=== PATIENT | male | born 1955 | race Caucasian/White ===

== ENCOUNTER 2016-09-22 19:59 | Inpatient (IN) | payer MEDICARE ==
[2016-09-22] MEDS ORDERED: ASPIRIN 81 MG CHEW PO STA (20:07)
[2016-09-22] MEDS ORDERED: MORPHINE SULFATE 4 MG/ML SYRINGE IV PRN (20:07)
[2016-09-22] MEDS ORDERED: NITROGLYCERIN SL TABS 0.4 MG TAB SUBLINGUAL PRN (20:07)
--- NOTE | 2016-09-22 20:11 | ED ---
General Adult HPI - General Chief complaint: Chest Pain Stated complaint: cardiac Time Seen by Provider: 09/22/16 20:07 Source: patient, RN notes reviewed, old records reviewed Mode of arrival: EMS Limitations: no limitations - History of Present Illness Initial comments: This is a 60-year-old male here for evaluation. This patient presents for evaluation of transfer regarding elevated troponin, non-ST elevated PA. Patient denies chest pain but has had increasing shortness of breath about 9 days. Exertional shortness of breath increased cough and congestion. Patient denies history of similar events in the past. Patient currently denies chest pain at this time patient denies history of heart disease. No fevers that is noted. No travel history or sick contacts - Related Data Home Medications Medication Instructions Recorded Confirmed No Known Home Medications [No 09/22/16 09/22/16 Known Home Medications] Allergies Allergy/AdvReac Type Severity Reaction Status Date / Time No Known Allergies Allergy Verified 09/22/16 20:08 Review of Systems ROS Statement: Those systems with pertinent positive or pertinent negative responses have been documented in the HPI. ROS Other: All systems not noted in ROS Statement are negative. Past Medical History Past Medical History: No Reported History History of Any Multi-Drug Resistant Organisms: None Reported Past Surgical History: Orthopedic Surgery Additional Past Surgical History / Comment(s): eye, wrist Past Psychological History: No Psychological Hx Reported Smoking Status: Former smoker Past Alcohol Use History: None Reported Past Drug Use History: Marijuana General Exam Limitations: no limitations General appearance: alert, in no apparent distress Head exam: Present: atraumatic, normocephalic, normal inspection Eye exam: Present: normal appearance, PERRL, EOMI. Absent: scleral icterus, conjunctival injection, periorbital swelling ENT exam: Present: normal exam, mucous membranes moist Neck exam: Present: normal inspection. Absent: tenderness, meningismus, lymphadenopathy Respiratory exam: Present: normal lung sounds bilaterally. Absent: respiratory distress, wheezes, rales, rhonchi, stridor Cardiovascular Exam: Present: regular rate, normal rhythm, normal heart sounds. Absent: systolic murmur, diastolic murmur, rubs, gallop, clicks GI/Abdominal exam: Present: soft, normal bowel sounds. Absent: distended, tenderness, guarding, rebound, rigid Extremities exam: Present: normal inspection, full ROM, normal capillary refill. Absent: tenderness, pedal edema, joint swelling, calf tenderness Back exam: Present: normal inspection Neurological exam: Present: alert, oriented X3, CN II-XII intact Psychiatric exam: Present: normal affect, normal mood Skin exam: Present: warm, dry, intact, normal color. Absent: rash Course Vital Signs 09/22/16 20:01 Pulse Rate 64 Respiratory 18 Rate Blood Pressure 125/85 O2 Sat by Pulse 96 Oximetry - Reevaluation(s) Reevaluation #1: 09/22/16 20:10 Patient is in no acute distress here in the emergency room, resting comfortably Reevaluation #2: 09/22/16 20:10 Spoke with transferring physician regarding transfer of patient Reevaluation #3: 09/22/16 20:10 Patient's medical transfer. Paperwork Work is reviewed 09/22/16 20:11 Medical Decision Making - Medical Decision Making Male the ER for evaluation of cough congestion shortness of breath for about 9 or so days. Patient was found to have elevated troponin 0.2 at outside facility , patient transferred for cardiac observation and evaluation. Patient will be admitted for anticoagulation, tripped serial troponins telemetry and cardiac observation Critical Care Time Critical Care Time: Yes Total Critical Care Time: 31 Disposition Clinical Impression: Chest pain, NSTEMI (non-ST elevated myocardial infarction) Disposition: ADMITTED IP TO THIS [facility] Condition: Serious Referrals: None,Stated [Primary Care Provider] - 1-2 days
[2016-09-22] MEDS: SODIUM CHLORIDE 0.9% 1,000 ML IV SCH (20:22)
[2016-09-22] MEDS: HEPARIN SODIUM,PORCINE/D5W PMX 25,000 UNIT in DEXTROSE/WATER 1 500ML.BAG IV SCH (20:23)
[2016-09-22] MEDS ORDERED: methylPREDNISolone SOD SUCCI 125 MG/2 ML VIAL IV STA (21:48)
[2016-09-22] MEDS: IPRATROPIUM-ALBUTEROL 3 ML NEB INHALATION SCH (23:17)
[2016-09-22 23:21] LABS: Creatine Kinase 116 U/L (55-170)
[2016-09-22] MEDS ORDERED: HEPARIN SODIUM,PORCINE 5,000 UNIT/ML 1 ML VIAL IV PRN (23:30)
[2016-09-22 23:35] LABS: Creatine Kinase MB 0.7 ng/mL (0.0-2.4); Troponin I <0.012 ng/mL (0.000-0.034)
[2016-09-23 01:04] VITALS: BMI 23.1
[2016-09-23 02:22] LABS: Creatine Kinase 106 U/L (55-170)
[2016-09-23 02:35] LABS: Creatine Kinase MB 0.7 ng/mL (0.0-2.4); Troponin I <0.012 ng/mL (0.000-0.034)
[2016-09-23] MEDS: IPRATROPIUM-ALBUTEROL 3 ML NEB INHALATION SCH ×6 (04:36→23:34)
[2016-09-23 05:55] LABS: Basophils % (A) 0 %; CH 32.2; CHCM 34.8; Eosinophils % (A) 0 %; HCT 36.3 % (39.0-53.0); HDW 2.62; HGB 12.5 gm/dL (13.0-17.5); Luc # (Auto) 0.05; Luc % (Auto) 1; Lymphocytes # (A) 0.5 k/uL (1.0-4.8); Lymphocytes % (A) 12 %; MCH 31.8 pg (25.0-35.0); MCHC 34.3 g/dL (31.0-37.0); MCV 92.8 fL (80.0-100.0); Mean Platelet Volume 7.7; Monocytes # (A) 0.1 k/uL (0-1.0); Monocytes % (A) 2 %; Neutrophils # (A) 3.4 k/uL (1.3-7.7); Neutrophils % (A) 84 %; RBC 3.91 m/uL (4.30-5.90); RDW 12.9 % (11.5-15.5); WBC (Perox) 4.07
[2016-09-23 06:09] LABS: ALT 26 U/L (21-72); AST 17 U/L (17-59); Alkaline Phosphatase 81 U/L (38-126); Anion Gap 11 mmol/L; Blood Urea Nitrogen 13 mg/dL (9-20); Calcium 8.9 mg/dL (8.4-10.2); Carbon Dioxide 21 mmol/L (22-30); Chloride 106 mmol/L (98-107); Cholesterol 164 mg/dL (<200); Glucose 206 mg/dL (74-99); HDL Cholesterol 38 mg/dL (40-60); Non-African American GFR(MDRD) >60 (>60 ml/min/1.73 sqM); Potassium 3.3 mmol/L (3.5-5.1); Sodium 138 mmol/L (137-145); Total Bilirubin 0.8 mg/dL (0.2-1.3); Total Protein 7.1 g/dL (6.3-8.2); Triglycerides 49 mg/dL (<150)
[2016-09-23] MEDS: methylPREDNISolone SOD SUCCI 125 MG/2 ML VIAL IV SCH ×3 (07:45→21:14)
[2016-09-23] MEDS ORDERED: IPRATROPIUM-ALBUTEROL 3 ML NEB INHALATION SCH (08:00)
[2016-09-23] MEDS: ASPIRIN 325 MG TAB PO SCH (09:10)
[2016-09-23] MEDS: ATORVASTATIN 80 MG TAB PO SCH (09:10)
[2016-09-23] MEDS: SODIUM CHLORIDE 0.9% 1,000 ML IV SCH ×2 (09:11→11:40)
[2016-09-23] MEDS ORDERED: Potassium Replacement Protocol 1 EACH MISC MISCELLANE PRN (10:03)
--- NOTE | 2016-09-23 11:24 | P.CRDCN ---
History of Present Illness Consult date: 09/23/16 Chief complaint: Chest pain and positive troponin History of present illness: This is a 60-year-old gentleman with history of COPD who hasn't seen a physician in a long time has been having cough , congestion and shortness of breath for several days. Patient was also having body aches. He claims that over the last several days has been having some burning pain in the epigastric and lower sternal area which increases on deep breathing and mostly with coughing. No tenderness but he can reproduce the discomfort by squeezing the chest. Patient was seen in [facility], [place]. His cardiac enzymes showed positive troponin values. Because of chest pain and positive troponins patient was transferred here for suspected non-ST elevation [place]. His EKGs did not reveal any acute changes and cardiac enzymes 2 done in this hospital showed normal values. Patient is still wheezing and his symptoms mostly appear to be respiratory. Patient claims that several years ago he was admitted to one of the [facility] with a syncopal episode. At that time patient was bradycardic. However after all the evaluation he was told that he had a normal heart and the time. Denied any previous chest pains heart attacks or anginal episodes. We'll proceed with an echocardiogram to assess LV function. Will have pulmonary evaluation for treatment of his respiratory status and COPD exacerbation. When patient is stable he may be considered for a stress test Review of Systems REVIEW OF SYSTEMS: CONSTITUTIONAL:. Patient is doing well. No complaints of fever or chills EYES: Denies diplopia, blurring of vision EARS, NOSE, MOUTH, THROAT: Denies headaches, denies sore throat. CARDIOVASCULAR: As per HPI RESPIRATORY: As per HPI GASTROINTESTINAL: Denies change in appetite, denies abdominal pain, denies diarrhea GENITOURINARY: Denies hematuria, denies infections. MUSKULOSKELETAL: Denies pain, denies swelling. Denies any cramps or claudication INTEGUMENTARY: Denies rash, denies eczema. NEUROLOGICAL: Denies focal weakness, or visual disturbance. Denies any dizziness or syncope PSYCHIATRIC: Denies anxiety, denies depression. HEMATOLOGIC/LYMPHATIC: Denies any bleeding, denies enlarged lymph nodes. Past Medical History Past Medical History: No Reported History History of Any Multi-Drug Resistant Organisms: None Reported Past Surgical History: Orthopedic Surgery Additional Past Surgical History / Comment(s): eye, wrist Past Psychological History: No Psychological Hx Reported Smoking Status: Former smoker Past Alcohol Use History: None Reported Past Drug Use History: Marijuana Medications and Allergies Home Medications Medication Instructions Recorded Confirmed Type No Known Home Medications [No 09/22/16 09/22/16 History Known Home Medications] Allergies Allergy/AdvReac Type Severity Reaction Status Date / Time No Known Allergies Allergy Verified 09/22/16 21:27 Physical Exam Vitals: Vital Signs Temp Pulse Pulse Resp BP BP Pulse Ox 09/23/16 08:45 97.6 F 79 18 111/61 96 09/23/16 07:22 60 09/23/16 07:10 60 09/23/16 04:45 60 09/23/16 04:36 64 09/23/16 02:46 97.1 F L 60 18 118/67 97 09/23/16 00:56 97.1 F L 60 18 121/61 96 09/22/16 23:27 60 09/22/16 23:19 56 L 96 09/22/16 23:06 57 L 20 121/62 98 09/22/16 21:39 57 L 20 140/84 100 Intake and Output 09/22/16 09/23/16 09/23/16 22:59 06:59 14:59 Intake Total 431.668 237 Balance 431.668 237 Intake: IV 368 Heparin Sodium,Porcine/ 68 D5w Pmx 25,000 unit In Dextrose/Water 1 500ml. bag @ 12 UNITS/KG/HR 19. 59 mls/hr IV .Q24H D[facility]I Rx #:[id number] Sodium Chloride 0.9% 1, 300 000 ml @ 100 mls/hr IV . Q10H D[facility]I Rx#:[id number] Intake, IV Titration 63.668 Amount Heparin Sodium,Porcine/ 63.668 D5w Pmx 25,000 unit In Dextrose/Water 1 500ml. bag @ 12 UNITS/KG/HR 19. 59 mls/hr IV .Q24H D[facility]I Rx #:[id number] Oral 237 Other: # Voids 1 Weight 81.647 kg GENERAL EXAM: Patient is alert and oriented and doesn't appear to be in any acute distress HEENT: Normocephalic. Normal reaction of pupils, equal size, normal range of extraocular motion. No erythema or exudates in the throat. NECK: No masses, no nuchal rigidity. CHEST: No chest wall deformity. LUNGS: Expiratory wheezing and rhonchi HEART: S1 and S2 normal with no audible mumurs or gallops. Regular rhythm, femorals equal on both sides.. ABDOMEN: No hepatosplenomegaly, normal bowel sounds, no guarding or rigidity. SKIN: No rashes CENTRAL NERVOUS SYSTEM: No focal deficits. EXTREMITIES: No cyanosis, clubbing or edema. Results 09/23/16 05:38 09/23/16 05:38 Cardiac Enzymes 09/22/16 09/23/16 09/23/16 Range/Units 22:52 01:45 05:38 AST 17 (17-59) U/L CK-MB (CK-2) 0.7 0.7 (0.0-2.4) ng/mL Troponin I <0.012 <0.012 (0.000-0.034) ng/mL Coagulation 09/22/16 Range/Units 22:52 APTT 40.8 H (22.0-30.0) sec Lipids 09/23/16 Range/Units 05:38 Triglycerides 49 (<150) mg/dL Cholesterol 164 (<200) mg/dL HDL Cholesterol 38 L (40-60) mg/dL CBC 09/23/16 Range/Units 05:38 WBC 4.0 (3.8-10.6) k/uL RBC 3.91 L (4.30-5.90) m/uL Hgb 12.5 L (13.0-17.5) gm/dL Hct 36.3 L (39.0-53.0) % Plt Count 186 (150-450) k/uL Comprehensive Metabolic Panel 09/23/16 Range/Units 05:38 Sodium 138 (137-145) mmol/L Potassium 3.3 L (3.5-5.1) mmol/L Chloride 106 (98-107) mmol/L Carbon Dioxide 21 L (22-30) mmol/L BUN 13 (9-20) mg/dL Creatinine 0.60 L (0.66-1.25) mg/dL Glucose 206 H (74-99) mg/dL Calcium 8.9 (8.4-10.2) mg/dL AST 17 (17-59) U/L ALT 26 (21-72) U/L Alkaline Phosphatase 81 (38-126) U/L Total Protein 7.1 (6.3-8.2) g/dL Albumin 3.9 (3.5-5.0) g/dL Current Medications Generic Name Dose Route Start Last Admin Trade Name Hectorq PRN Reason Stop Dose Admin Albuterol/Ipratropium 3 ml 09/23/16 00:00 09/23/16 07:10 Duoneb 0.5 Mg-3 Mg/3 Ml Soln INHALATION 3 ml RT-Q4H DIONI Administration Aspirin 325 mg 09/23/16 09:00 09/23/16 09:10 Aspirin PO 325 mg DAILY DIONI Administration Atorvastatin Calcium 80 mg 09/23/16 09:00 09/23/16 09:10 Lipitor PO Not Given DAILY DIONI Heparin Sodium (Porcine) 0 unit 09/22/16 23:30 09/22/16 23:37 Heparin IV 2,040 unit PER PROTOCOL PRN Administration Low PTT Protocol Heparin Sodium/Dextrose 25,000 500 mls @ 19.59 mls/hr 09/22/16 20:15 23:38 unit/ IV Solution IV 14 units/kg/hr .Q24H DIONI 22.86 mls/hr Protocol Titration 12 UNITS/KG/HR Sodium Chloride 1,000 mls @ 100 mls/hr 09/22/16 20:15 09/23/16 09:11 Saline 0.9% IV 100 mls/hr .Q10H DIONI Administration Insulin Human Lispro 0 unit 09/23/16 12:30 Humalog SQ ACHS DIONI Protocol Methylprednisolone Sodium Succinate 60 mg 09/23/16 06:00 09/23/16 07:45 Solu-Medrol IV 60 mg Q8H DIONI Administration Miscellaneous Information 1 each 09/23/16 10:03 Potassium Per Protocol MISCELLANE DAILY PRN Per Protocol Protocol Morphine Sulfate 4 mg 09/22/16 20:07 Morphine Sulfate (Inj) IV Q4HR PRN Chest Pain Nitroglycerin 0.4 mg 09/22/16 20:07 Nitrostat SUBLINGUAL Q5M PRN Chest Pain Potassium Chloride 20 meq 09/23/16 11:00 K-Dur 20 PO 09/23/16 12:01 Q1HR DIONI Intake and Output 09/22/16 09/23/16 09/23/16 22:59 06:59 14:59 Intake Total 431.668 237 Balance 431.668 237 Intake: IV 368 Heparin Sodium,Porcine/ 68 D5w Pmx 25,000 unit In Dextrose/Water 1 500ml. bag @ 12 UNITS/KG/HR 19. 59 mls/hr IV .Q24H DIONI Rx #:[id number] Sodium Chloride 0.9% 1, 300 000 ml @ 100 mls/hr IV . Q10H [facility]IONI Rx#:[id number] Intake, IV Titration 63.668 Amount Heparin Sodium,Porcine/ 63.668 D5w Pmx 25,000 unit In Dextrose/Water 1 500ml. bag @ 12 UNITS/KG/HR 19. 59 mls/hr IV .Q24H DIONI Rx #:[id number] Oral 237 Other: # Voids 1 Weight 81.647 kg 09/23/16 05:38 09/23/16 05:38 EKG Interpretations (text) EKG done in [facility], [place] showed sinus rhythm without acute ST-T wave normalities Assessment and Plan (1) COPD with exacerbation Status: Acute (2) Chest pain Status: Acute Plan: This patient is mainly admitted with the complaints of cough and congestion and shortness of breath which seemed to be related to his exacerbation of COPD. He does have some burning chest pain which seemed to be respirophasic and probably musculoskeletal, brought on by excessive coughing. His troponin values in our hospital have been negative. EKGs have been normal. I will get an echocardiogram to assess LV function. I will recommend a stress test when his pulmonary status is stable. Thank you
[2016-09-23 11:35] LABS: Glucose,Whole Blood 141 mg/dL (75-99)
[2016-09-23] MEDS: POTASSIUM CHLORIDE ER 20 MEQ TAB.ER PO SCH ×2 (11:40→11:43)
[2016-09-23] MEDS: INSULIN LISPRO (humaLOG) 300 UNIT/3 ML VIAL SQ SCH ×3 (11:40→21:13)
[2016-09-23 16:01] LABS: Hemoglobin A1C 5.5 % (4.2-6.1)
[2016-09-23 16:40] LABS: Glucose,Whole Blood 148 mg/dL (75-99)
[2016-09-23] MEDS: BUDESONIDE 1 MG/2 ML NEBU INHALATION SCH ×2 (16:52→21:03)
--- NOTE | 2016-09-23 18:11 | HP ---
DATE OF ADMISSION: 09/22/2016 PRESENTING COMPLAINT: Chest congestion. HISTORY OF PRESENTING COMPLAINT: This is a 60-year-old patient who does not have a family doctor. She was transferred from [facility]. Patient is an ex-smoker. For 9 days patient has been getting increasing shortness of breath, cough, yellow sputum, fever, wheezing, decreased appetite, feeling rundown. Patient had a troponin leak and was transferred down here to rule out a cardiac cause. Patient also started having heartburn which became worse. There was a concern of underlying cardiac issue. REVIEW OF SYSTEMS: CONSTITUTIONAL: Weak, tired. HEENT: Chronic right eye injury. RESPIRATORY: As above. CARDIOVASCULAR: As above. GASTROINTESTINAL: Heartburn. GENITOURINARY: None. MUSCULOSKELETAL: Aches and pain in different joints. DERMATOLOGICAL: Tattoos. LYMPHATIC: None. PSYCHIATRY: None. NEUROLOGICAL: None. PAST MEDICAL HISTORY: COPD. PAST SURGICAL HISTORY: Right wrist surgery. SOCIAL HISTORY: Patient is on disability. Lives with his son. Smoked a pack a day for 40 years; stopped ( ) ago. FAMILY HISTORY: Reviewed; noncontributory to presentation. HOME MEDICATIONS: None. ALLERGIES: NONE. PHYSICAL EXAMINATION: VITAL SIGNS ON PRESENTATION: Temperature 97.1, pulse 60, respiration 18, blood pressure 121/61, pulse ox 96% on room air. GENERAL APPEARANCE: Average build. Sitting up, short of breath. EYES: Absent right eye. HEENT: External appearance of nose and ears normal. Oral cavity normal. NECK: JVD not raised. Mass not palpable. RESPIRATORY: Effort increased. LUNGS: Diminished breath sounds. Prolonged expiration and wheezing. Crackles in right base. CARDIOVASCULAR: First and second sounds normal. No edema. ABDOMEN: Soft, nontender. Liver and spleen not palpable. LYMPHATIC: No lymph node palpable in neck or axillae. PSYCHIATRY: Alert and oriented x3. Mood and affect normal. NEUROLOGICAL: Cranial nerves grossly intact. Power and sensation grossly intact. MUSCULOSKELETAL: Evidence of osteoarthritis, especially in the hands. INVESTIGATIONS: White count 4, hemoglobin 12.5, potassium 3.3. BUN 13, creatinine 0.60. Chest x-ray report from ( ) shows no infiltrates. Troponin x2 less than 0.012. LDL 116. ASSESSMENT: 1. Acute severe chronic obstructive pulmonary disease exacerbation from with acute tracheobronchitis in an ex-smoker. 2. Severe gastroesophageal reflux disease. 3. Hypokalemia; potassium 3.3. 4. Non-specific chest pain. Patient could have underlying coronary artery disease, though the troponins are negative. Patient could actually have had an CO and now troponins have normalized. 5. 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 PLAN: Patient is put on nebulized bronchodilator, aspirin Lipitor, IV heparin. Cardiology was consulted. Also on Solu-Medrol and nebulized bronchodilator. Sputum will be sent off for Gram stain and culture. Care was discussed with the patient. Patient should establish with a family doctor locally and follow with him/her.
[2016-09-23] MEDS: FAMOTIDINE 20 MG TAB PO SCH (21:13)
[2016-09-23] MEDS: HEPARIN SODIUM,PORCINE/D5W PMX 25,000 UNIT in DEXTROSE/WATER 1 500ML.BAG IV SCH (21:13)
[2016-09-23 21:17] LABS: Glucose,Whole Blood 126 mg/dL (75-99)
[2016-09-23] MEDS ORDERED: IPRATROPIUM-ALBUTEROL 3 ML NEB INHALATION PRN (23:34)
[2016-09-24] MEDS: SODIUM CHLORIDE 0.9% 1,000 ML IV SCH ×3 (01:59→17:39)
[2016-09-24 06:12] LABS: Glucose,Whole Blood 148 mg/dL (75-99)
[2016-09-24 06:18] LABS: Basophils % (A) 0 %; CH 32.2; CHCM 33.4; Eosinophils % (A) 0 %; HCT 35.4 % (39.0-53.0); HDW 2.48; HGB 11.3 gm/dL (13.0-17.5); Luc % (Auto) 1; Lymphocytes # (A) 0.7 k/uL (1.0-4.8); Lymphocytes % (A) 5 %; MCH 31.1 pg (25.0-35.0); MCHC 32.1 g/dL (31.0-37.0); MCV 96.9 fL (80.0-100.0); Mean Platelet Volume 8.1; Monocytes # (A) 0.6 k/uL (0-1.0); Monocytes % (A) 4 %; Neutrophils # (A) 11.9 k/uL (1.3-7.7); Neutrophils % (A) 90 %; RBC 3.65 m/uL (4.30-5.90); RDW 13.5 % (11.5-15.5); WBC 13.3 k/uL (3.8-10.6); WBC (Perox) 14.42
[2016-09-24] MEDS: INSULIN LISPRO (humaLOG) 300 UNIT/3 ML VIAL SQ SCH ×4 (06:36→21:18)
[2016-09-24] MEDS: methylPREDNISolone SOD SUCCI 125 MG/2 ML VIAL IV SCH ×3 (06:36→21:18)
[2016-09-24] MEDS: IPRATROPIUM-ALBUTEROL 3 ML NEB INHALATION SCH ×4 (08:25→19:58)
[2016-09-24] MEDS: BUDESONIDE 1 MG/2 ML NEBU INHALATION SCH ×2 (08:25→19:58)
--- NOTE | 2016-09-24 10:21 | XR ---
EXAMINATION TYPE: XR chest 2V DATE OF EXAM: 09/24/2016 10:13 AM COMPARISON: NONE HISTORY: Short of breath and chest pain TECHNIQUE: Frontal and lateral views of the chest are obtained. FINDINGS: There is no focal air space opacity, pleural effusion, or pneumothorax seen. The cardiac silhouette size is within normal limits. There are prominent lung. There are overlying cardiac leads. The osseous structures are intact. IMPRESSION: No acute cardiopulmonary process.
[2016-09-24] MEDS: ATORVASTATIN 80 MG TAB PO SCH (11:21)
[2016-09-24] MEDS: ASPIRIN 325 MG TAB PO SCH (11:21)
[2016-09-24] MEDS: FAMOTIDINE 20 MG TAB PO SCH ×2 (11:21→21:19)
[2016-09-24 11:22] LABS: Glucose,Whole Blood 208 mg/dL (75-99)
--- NOTE | 2016-09-24 16:14 | P.PN ---
Subjective This is a 60-year-old gentleman with history of COPD who hasn't seen a physician in a long time has been having cough , congestion and shortness of breath for several days. Patient was also having body aches. He claims that over the last several days has been having some burning pain in the epigastric and lower sternal area which increases on deep breathing and mostly with coughing. No tenderness but he can reproduce the discomfort by squeezing the chest. Patient was seen in [facility]. His cardiac enzymes showed positive troponin values. Because of chest pain and positive troponins patient was transferred here for suspected non-ST elevation [place]. His EKGs did not reveal any acute changes and cardiac enzymes 2 done in this hospital showed normal values. Patient was significantly thing yesterday. His troponins here have been negative. Patient overall feels quite well today. Objective - Vital Signs Vital signs: Vital Signs Temp 97.1 F L 09/24/16 08:00 Pulse 76 09/24/16 15:58 Resp 18 09/24/16 11:40 BP 112/56 09/24/16 11:40 Pulse Ox 95 09/24/16 11:40 Intake & Output 09/23/16 09/24/16 09/24/16 18:59 06:59 18:59 Intake Total 6933.547 4799.299 1276.487 Output Total 400 Balance 1093.332 142.203 1172.487 Weight 81.647 kg 80.9 kg Intake: IV 1160 960 Heparin Sodium,Porcine/ 60 160 D5w Pmx 25,000 unit In Dextrose/Water 1 500ml. bag @ 12 UNITS/KG/HR 19. 59 mls/hr IV .Q24H [facility] Rx #:[id number] Sodium Chloride 0.9% 1, 1100 800 000 ml @ 100 mls/hr IV . Q10H [facility] Rx#:[id number] Intake, IV Titration 436.332 106.299 316.487 Amount Heparin Sodium,Porcine/ 436.332 106.299 316.487 D5w Pmx 25,000 unit In Dextrose/Water 1 500ml. bag @ 12 UNITS/KG/HR 19. 59 mls/hr IV .Q24H [facility] Rx #:[id number] Oral 657 0 Output: Urine 400 Other: # Voids 1 1 - Exam PHYSICAL EXAMINATION: HEENT: Head is atraumatic, normocephalic. Pupils equal, round. Neck is supple. There is no elevated jugular venous pressure. HEART EXAMINATION: Heart S1, S2 normal. No murmur or gallop heard. CHEST EXAMINATION: Lungs are clear to auscultation and precussion. No chest wall tenderness is noted on palpation or with deep breathing. ABDOMEN: Soft, nontender. Bowel sounds are heard. No organomegaly noted. EXTREMITIES: 2+ peripheral pulses with no evidence of peripheral edema and no calf tenderness noted. NEUROLOGIC patient is awake, alert and oriented -3. . - Labs CBC & Chem 7: 09/24/16 05:57 09/24/16 05:57 Labs: Abnormal Lab Results - Last 24 Hours (Table) 09/23/16 09/23/16 09/23/16 Range/Units 16:37 19:33 21:11 WBC (3.8-10.6) k/uL RBC (4.30-5.90) m/uL Hgb (13.0-17.5) gm/dL Hct (39.0-53.0) % Neutrophils # (1.3-7.7) k/uL Lymphocytes # (1.0-4.8) k/uL APTT 41.6 H (22.0-30.0) sec POC Glucose (mg/dL) 148 H 126 H (75-99) mg/dL 09/24/16 09/24/16 09/24/16 Range/Units 05:57 05:57 05:59 WBC 13.3 H (3.8-10.6) k/uL RBC 3.65 L (4.30-5.90) m/uL Hgb 11.3 L (13.0-17.5) gm/dL Hct 35.4 L (39.0-53.0) % Neutrophils # 11.9 H (1.3-7.7) k/uL Lymphocytes # 0.7 L (1.0-4.8) k/uL APTT 47.2 H (22.0-30.0) sec POC Glucose (mg/dL) 148 H (75-99) mg/dL 09/24/16 09/24/16 Range/Units 11:20 12:55 WBC (3.8-10.6) k/uL RBC (4.30-5.90) m/uL Hgb (13.0-17.5) gm/dL Hct (39.0-53.0) % Neutrophils # (1.3-7.7) k/uL Lymphocytes # (1.0-4.8) k/uL APTT 44.5 H (22.0-30.0) sec POC Glucose (mg/dL) 208 H (75-99) mg/dL Assessment and Plan (1) COPD with exacerbation Status: Acute (2) Chest pain Status: Acute Plan: Cardiology's perspective, we'll schedule the patient for stress echocardiographic study tomorrow based on those findings further recommendations will be made. DNP note has been reviewed, I agree with a documented findings and plan of care. Patient was seen and examined.
[2016-09-24 16:15] LABS: Glucose,Whole Blood 142 mg/dL (75-99)
[2016-09-24] MEDS: HEPARIN SODIUM,PORCINE/D5W PMX 25,000 UNIT in DEXTROSE/WATER 1 500ML.BAG IV SCH (17:39)
[2016-09-24 21:04] LABS: Glucose,Whole Blood 139 mg/dL (75-99)
[2016-09-25] MEDS: methylPREDNISolone SOD SUCCI 40 MG/ML 1 ML VIAL IV SCH ×3 (00:36→16:29)
[2016-09-25 06:08] LABS: Glucose,Whole Blood 129 mg/dL (75-99)
[2016-09-25] MEDS: INSULIN LISPRO (humaLOG) 300 UNIT/3 ML VIAL SQ SCH ×3 (06:15→16:35)
[2016-09-25 06:52] LABS: Anion Gap 8 mmol/L; Blood Urea Nitrogen 15 mg/dL (9-20); Calcium 8.9 mg/dL (8.4-10.2); Carbon Dioxide 23 mmol/L (22-30); Chloride 109 mmol/L (98-107); Glucose 142 mg/dL (74-99); Non-African American GFR(MDRD) >60 (>60 ml/min/1.73 sqM); Potassium 4.2 mmol/L (3.5-5.1); Sodium 140 mmol/L (137-145)
[2016-09-25 06:53] LABS: Basophils % (A) 0 %; CH 31.4; CHCM 33.1; Eosinophils % (A) 0 %; HCT 35.1 % (39.0-53.0); HDW 2.51; HGB 11.5 gm/dL (13.0-17.5); Luc # (Auto) 0.08; Luc % (Auto) 1; Lymphocytes # (A) 0.6 k/uL (1.0-4.8); Lymphocytes % (A) 5 %; MCH 31.3 pg (25.0-35.0); MCHC 32.8 g/dL (31.0-37.0); MCV 95.5 fL (80.0-100.0); Mean Platelet Volume 7.7; Monocytes # (A) 0.4 k/uL (0-1.0); Monocytes % (A) 4 %; Neutrophils # (A) 10.5 k/uL (1.3-7.7); Neutrophils % (A) 91 %; RBC 3.67 m/uL (4.30-5.90); RDW 13.4 % (11.5-15.5); WBC 11.6 k/uL (3.8-10.6); WBC (Perox) 13.19
[2016-09-25 08:02] LABS: Manual Review Performed; RBC Morphology Normal
--- NOTE | 2016-09-25 08:57 | PN ---
DATE OF SERVICE: 09/24/2016 PRESENTING COMPLAINT: Short of breath. INTERVAL HISTORY: This is a patient who is an ex-smoker presented with acute severe COPD exacerbation, acute tracheobronchitis, still got wheezing and cough, but shade better. Cardiology decided to proceed with stress test tomorrow. Patient is bringing up some sputum. Review of systems done for constitutional, cardiovascular, GI, pulmonary; relevant findings as above. Current medications include IV ceftriaxone, nebulized bronchodilators, Solu-Medrol. On examination, temperature 97.1, pulse 69, respirations 18, blood pressure 117/59, pulse ox 93% on room air. GENERAL APPEARANCE: Sitting up, not in distress. EYES: Right eye is damaged. NECK: JVD not raised. Mass not palpable. RESPIRATORY: Effort increased. LUNGS: Decreased breath sounds, prolonged expiration and wheezing, some right basal crackles. CARDIOVASCULAR: First and second sounds normal. No edema. ABDOMEN: Soft. Nontender. Liver and spleen not palpable. PSYCHIATRY: Alert and oriented x3. Mood and affect normal. INVESTIGATIONS: Accu-Cheks are noted. White count 13.3, hemoglobin 11.3. ASSESSMENT: 1. Acute severe chronic obstructive pulmonary disease exacerbation with acute tracheobronchitis in an ex-smoker, slow to respond. 2. Severe gastroesophageal reflux disease. 3. Hypokalemia. 4. Chest pain, will have a stress test tomorrow. 5. Damaged right eye with no vision. 6. IV heparin monitoring. PLAN: Continue current medication and treatment plan. Continued with steroids and nebulized bronchodilator. Patient will have stress test tomorrow.
[2016-09-25] MEDS: BUDESONIDE 1 MG/2 ML NEBU INHALATION SCH (09:26)
[2016-09-25] MEDS: IPRATROPIUM-ALBUTEROL 3 ML NEB INHALATION SCH ×3 (09:27→17:24)
[2016-09-25] MEDS ORDERED: guaiFENesin SYRUP 100MG/5ML 200 MG/10 ML CUP PO PRN (10:38)
[2016-09-25 11:28] LABS: Glucose,Whole Blood 108 mg/dL (75-99)
[2016-09-25] MEDS: FAMOTIDINE 20 MG TAB PO SCH (11:31)
[2016-09-25] MEDS: ASPIRIN 325 MG TAB PO SCH (11:31)
[2016-09-25] MEDS: ATORVASTATIN 80 MG TAB PO SCH (11:31)
--- NOTE | 2016-09-25 12:21 | ECHOS ---
DATE OF SERVICE: 09/25/2016 AGE: 60Y SEX: M HT: 74" WT: 178 lbs. Protocol Art: X Others: Stress Echo Stage: 3 Dur. of Exercise: 8:30 *Heart Rate Blood Pressure *Rest: 61 Rest: 129/84 * *Max. Achieved: 131 Maximum BP: 185/71 85% PMHR: 137 100% PMHR: 161 *METS: 9.6 INDICATIONS: Chest pain, shortness of breath. MEDICATIONS: None. CLINICAL INFORMATION: Chest pain and history of smoking 1-1/2 packs of cigarettes a day for 40 years, quit 4 years ago. Resting ECG shows sinus rhythm, rate of 61 beats per minute, FL interval of 0.16, QRS 0.08, normal ST-T waves. Utilizing a standard Art protocol, a symptom-limited treadmill test was performed. Patient exercised a total of 8:30 minutes, attained a peak heart rate of 131 beats per minute, which is approximately 81% predicted maximum heart rate without any chest pain or pressure or ST segment deviations indicative of ischemia or cardiac arrhythmias. Patient not able to go any further because of the shortness of breath. Exercise test was terminated. IMPRESSION: 1. Baseline rhythm is sinus with normal FL interval, normal QRS, normal ST-T waves. 2. negative exercise treadmill test at 81% predicted maximum heart rate without reaching the 85% so it is an incomplete study even though normal at 81%. 3. No evidence of any wall motion abnormality at the 81% predicted maximal heart rate but did not reach the 85% target so normal study at the 81% without reaching the target, so incomplete study. 4. Patient did not report any symptoms throughout the study.
[2016-09-25 15:35] VITALS: BP 116/60; PULSE 65; RESP 22; TEMP 98
--- NOTE | 2016-09-25 16:10 | P.PN ---
Subjective Principal diagnosis: Chest pain and shortness of breath This patient was admitted to the hospital with chest pain and borderline troponin elevation. His main complaint was shortness of breath. Patient was found to have COPD and bronchitis. He had a stress test today. Patient has achieved 81% of predicted heart rate . The stress echo is negative for ischemia. No further cardiac workup is suggested. Once his primary status stable, patient could be discharged home Objective - Vital Signs Vital signs: Vital Signs Temp 98 F 09/25/16 15:32 Pulse 65 09/25/16 15:39 Resp 22 09/25/16 16:00 BP 116/60 09/25/16 15:32 Pulse Ox 95 09/25/16 15:32 Intake & Output 09/24/16 09/25/16 09/25/16 18:59 06:59 18:59 Intake Total 3923.783 5056.479 1010 Balance 0763.665 3976.479 1010 Weight 82.8 kg Intake: IV 960 1030 480 Heparin Sodium,Porcine/ 160 230 80 D5w Pmx 25,000 unit In Dextrose/Water 1 500ml. bag @ 12 UNITS/KG/HR 19. 59 mls/hr IV .Q24H [facility] Rx #:[id number] Sodium Chloride 0.9% 1, 800 800 400 000 ml @ 100 mls/hr IV . Q10H [facility] Rx#:[id number] Intake, IV Titration 393.701 121.479 50 Amount Heparin Sodium,Porcine/ 393.701 121.479 D5w Pmx 25,000 unit In Dextrose/Water 1 500ml. bag @ 12 UNITS/KG/HR 19. 59 mls/hr IV .Q24H [facility] Rx #:[id number] cefTRIAXone 1,000 mg In 50 Sodium Chloride 0.9% 50 ml @ 100 mls/hr IVPB Q24HR [facility] Rx#:[id number] Oral 480 600 480 Other: Voiding Method Toilet Toilet Urinal Urinal # Voids 1 1 - Labs CBC & Chem 7: 09/25/16 05:42 09/25/16 05:42 Labs: Abnormal Lab Results - Last 24 Hours (Table) 09/24/16 09/24/16 09/24/16 Range/Units 16:13 19:05 21:03 WBC (3.8-10.6) k/uL RBC (4.30-5.90) m/uL Hgb (13.0-17.5) gm/dL Hct (39.0-53.0) % Neutrophils # (1.3-7.7) k/uL Lymphocytes # (1.0-4.8) k/uL APTT 47.8 H (22.0-30.0) sec Chloride (98-107) mmol/L Glucose (74-99) mg/dL POC Glucose (mg/dL) 142 H 139 H (75-99) mg/dL 09/25/16 09/25/16 09/25/16 Range/Units 05:42 05:42 05:42 WBC 11.6 H (3.8-10.6) k/uL RBC 3.67 L (4.30-5.90) m/uL Hgb 11.5 L (13.0-17.5) gm/dL Hct 35.1 L (39.0-53.0) % Neutrophils # 10.5 H (1.3-7.7) k/uL Lymphocytes # 0.6 L (1.0-4.8) k/uL APTT 69.7 H (22.0-30.0) sec Chloride 109 H (98-107) mmol/L Glucose 142 H (74-99) mg/dL POC Glucose (mg/dL) (75-99) mg/dL 09/25/16 09/25/16 Range/Units 06:07 11:26 WBC (3.8-10.6) k/uL RBC (4.30-5.90) m/uL Hgb (13.0-17.5) gm/dL Hct (39.0-53.0) % Neutrophils # (1.3-7.7) k/uL Lymphocytes # (1.0-4.8) k/uL APTT (22.0-30.0) sec Chloride (98-107) mmol/L Glucose (74-99) mg/dL POC Glucose (mg/dL) 129 H 108 H (75-99) mg/dL Microbiology - Last 24 Hours (Table) 09/23/16 21:05 Gram Stain - Preliminary Sputum Assessment and Plan (1) COPD with exacerbation Status: Acute (2) Chest pain Status: Acute Plan: This patient is mainly admitted with the complaints of cough and congestion and shortness of breath which seemed to be related to his exacerbation of COPD. He does have some burning chest pain which seemed to be respirophasic and probably musculoskeletal, brought on by excessive coughing. His troponin values in our hospital have been negative. EKGs have been normal. I will get an echocardiogram to assess LV function. I will recommend a stress test when his pulmonary status is stable. Thank you Patient's a stress echo is negative for ischemia. From Cardec standpoint patient could be discharged home when patient is medically stable.
[2016-09-25 16:34] LABS: Glucose,Whole Blood 118 mg/dL (75-99)
--- NOTE | 2016-09-28 18:16 | DS ---
DATE OF ADMISSION: 09/22/2016 DATE OF DISCHARGE: 09/25/2016 FINAL DIAGNOSIS(ES): 1. Acute severe chronic obstructive pulmonary disease exacerbation with acute tracheobronchitis in an ex-smoker. 2. Severe gastroesophageal reflux disease. 3. Hypokalemia. 4. Chest pain, probably musculoskeletal. 5. 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 6. IV heparin monitoring. HOSPITAL COURSE: This patient is an ex-smoker presented with severe chronic obstructive pulmonary disease exacerbation also had some chest pressure. Did undergo a stress echocardiogram that was negative. Doing better at the time of discharge. On exam, lungs are improved air entry. CARDIOVASCULAR: First and second sounds normal. Damage right eye. DISCHARGE MEDICATIONS: 1. Ventolin 1 to 2 puffs q.6 p.r.n. 2. Aspirin 81 mg a day. 3. Ceftin 500 mg p.o. b.i.d. 4. Spiriva 1 capsule daily. 5. Prednisone taper. Follow up with Dr. Cope on 10/15/2016.
== END 2016-09-25 17:56 | disposition home or self-care (01) | DRG 192 ==
LOC: EC 19:59 → 6SEL 20:07
PROVIDERS: ADMIT Hospitalist; ATTEND Hospitalist
DX: J44.0 Chronic obstructive pulmonary disease with (acute) lower respiratory infection (principal); R00.1 Bradycardia, unspecified; E87.6 Hypokalemia; J20.9 Acute bronchitis, unspecified; J44.1 Chronic obstructive pulmonary disease with (acute) exacerbation; H54.61 Unqualified visual loss, right eye, normal vision left eye; K21.9 Gastro-esophageal reflux disease without esophagitis; Z87.891 Personal history of nicotine dependence
CPT/HCPCS: 71020; 80048; 80053; 80061; 82550; 82553; 83036; 84132; 84484; 85025; 85730; 87070; 87205; 93017; 93350; 94640; 94760

== ENCOUNTER 2018-01-23 18:38 | Emergency (ER) | payer MEDICARE, OTHER ==
[2018-01-23 18:59] VITALS: TEMP 97.6
--- NOTE | 2018-01-23 19:32 | ED ---
General Adult HPI - General Chief complaint: Chest Pain Stated complaint: Cardiac Issues Source: patient Mode of arrival: ambulatory Limitations: no limitations - History of Present Illness Initial comments: Dictation was produced using [employer] dictation software. please excuse any grammatical, word or spelling errors. Chief Complaint: 62-year-old male presents via transfer from [place] for elevated troponin History of Present Illness: Patient is 62-year-old male transferred from [place] for elevated troponin. Patient initially presented to the emergency department for difficulty in breathing and shortness of breath. He was also having issues with fatigue. Patient states he has not been sleeping well for the past 3 days. Patient was given treatment for COPD. Labs were obtained. Patient had elevated troponin. Per ER doctor at [facility] facility did not want to accept patient for unknown reason. Patient elevated troponin of 0.1. He was started on heparin and transferred to our facility for rule out and STEMI. As no complex at this time he feels rather well. Denies any chest pain, shortness of breath. He feels well. The ROS documented in this emergency department record has been reviewed and confirmed by me. Those systems with pertinent positive or negative responses have been documented in the HPI. All other systems are other negative and/or noncontributory. - Related Data Previous Rx's Medication Instructions Recorded Albuterol Inhaler [Ventolin Hfa 1 - 2 puff INHALATION Q6HR PRN #1 09/25/16 Inhaler] inhaler Aspirin 81 mg PO DAILY #1 chewable 09/25/16 Cefuroxime Axetil [Ceftin] 500 mg PO BID #10 tab 09/25/16 Tiotropium 18 Mcg/Puff [Spiriva] 1 cap INHALATION DAILY #1 cap 09/25/16 predniSONE 10 mg PO DAILY #30 tab 09/25/16 Allergies Allergy/AdvReac Type Severity Reaction Status Date / Time No Known Allergies Allergy Verified 01/23/18 18:58 Review of Systems ROS Statement: Those systems with pertinent positive or pertinent negative responses have been documented in the HPI. ROS Other: All systems not noted in ROS Statement are negative. Past Medical History Past Medical History: COPD Additional Past Medical History / Comment(s): bradycardia History of Any Multi-Drug Resistant Organisms: None Reported Past Surgical History: Orthopedic Surgery Additional Past Surgical History / Comment(s): eye, wrist Past Psychological History: No Psychological Hx Reported Smoking Status: Former smoker Past Alcohol Use History: Occasional Past Drug Use History: Marijuana General Exam - General Exam Comments Initial Comments: PHYSICAL EXAM: General Impression: Alert and oriented x3, not in acute distress HEENT: Normocephalic atraumatic, extra-ocular movements intact, eye patch to right eye, mucous membranes moist. Cardiovascular: Heart regular rate and rhythm, S1&S2 audible, no murmurs, rubs or gallops Chest: Lungs clear to auscultation bilaterally, no rhonchi, no wheeze, no rales Abdomen: Bowel sounds present, abdomen soft, non-tender, non-distended, no organomegaly Musculoskeletal: Pulses present and equal in all extremities, no peripheral edema Motor: Power 5/5 bilaterally, no focal deficits noted Neurological: CN II-XII grossly intact, no focal motor or sensory deficits noted Skin: Intact with no visualized rashes Psych: Normal affect and mood Limitations: no limitations Course Vital Signs 01/23/18 18:53 Temperature 97.6 F Pulse Rate 60 Respiratory 16 Rate Blood Pressure 120/69 O2 Sat by Pulse 100 Oximetry Medical Decision Making - Medical Decision Making ED course: 62-year-old male with elevated troponin of unknown etiology. Patient does not have any complaints at this time. Vital signs upon arrival are within acceptable limits. Chest her back condition was reviewed by myself. EKG is obtained.EKG interpretation: Ventricular rate 53. No UT prolongation, no QTC prolongation, no ST or T-wave changes noted. UT interval 140, QRS 104, QTC 47 Overall, this EKG is unremarkable. Patient had no complaints. He states he feels at baseline. Patient denies any chest pain, shortness of breath at this time. Repeat troponin was obtained here found to be negative. Patient to be discharge. There is no suspicion for ACS and STEMI at this time. It is unlikely that patient had an elevated troponin today and have a negative result here. Discussed patient that he should follow-up with his primary care physician. He is told to come back to the emergency Department with any worsening symptoms especially chest pain or shortness of breath. Patient is understandable and agreeable to this plan - Lab Data Lab Results 01/23/18 Range/Units 18:25 Troponin I <0.012 (0.000-0.034) ng/mL Disposition Clinical Impression: Troponin level elevated Disposition: HOME SELF-CARE Instructions: Chest Pain (ED) Is patient prescribed a controlled substance at d/c from ED?: No Referrals: None,Stated [Primary Care Provider] - 1-2 days Time of Disposition: 19:58
[2018-01-23 20:04] VITALS: BP 120/80; PULSE 65; RESP 15
== END 2018-01-23 20:02 | disposition home or self-care (01) ==
LOC: EC 18:38
DX: R79.89 Other specified abnormal findings of blood chemistry (principal); R07.9 Chest pain, unspecified; R06.02 Shortness of breath; J44.9 Chronic obstructive pulmonary disease, unspecified; Z87.891 Personal history of nicotine dependence
CPT/HCPCS: 36415; 84484; 93005; 99284

== ENCOUNTER 2020-10-23 20:36 | Inpatient (IN) | payer MEDICARE ==
[2020-10-23] MEDS ORDERED: HEPARIN SODIUM 1,000 UN/ML (10ML VL) IV PRN (20:51)
--- NOTE | 2020-10-23 20:51 | ED ---
General Adult HPI - General Chief complaint: Chest Pain Stated complaint: Chest Pain Time Seen by Provider: 10/23/20 20:38 Source: patient, EMS, RN notes reviewed, old records reviewed Mode of arrival: EMS Limitations: no limitations - History of Present Illness Initial comments: 64-year-old transfer from outside hospital for elevated troponin, non-ST segment elevated IA. Patient had presented with chest pain, nausea and diaphoresis this began approximately 24 hours ago. He was noted to have an elevated troponin, started on nitroglycerin and heparin, given aspirin and transferred for cardiology evaluation. He has no current chest pain. No dyspnea. No nausea. He has no prior history of CAD. He states he had a heart catheterization in [place] about 4 years ago which she reports was negative. - Related Data Previous Rx's Medication Instructions Recorded Albuterol Inhaler (Mhu) [Ventolin 1 - 2 puff INHALATION Q6HR PRN #1 09/25/16 Hfa Inhaler (Mhu)] inhaler Aspirin 81 mg PO DAILY #1 chewable 09/25/16 Cefuroxime Axetil [Ceftin] 500 mg PO BID #10 tab 09/25/16 Tiotropium 18 Mcg/Puff [Spiriva] 1 cap INHALATION DAILY #1 cap 09/25/16 predniSONE 10 mg PO DAILY #30 tab 09/25/16 Allergies Allergy/AdvReac Type Severity Reaction Status Date / Time No Known Allergies Allergy Verified 01/23/18 18:58 Review of Systems ROS Statement: Those systems with pertinent positive or pertinent negative responses have been documented in the HPI. ROS Other: All systems not noted in ROS Statement are negative. Past Medical History Past Medical History: COPD Additional Past Medical History / Comment(s): bradycardia History of Any Multi-Drug Resistant Organisms: None Reported Past Surgical History: Orthopedic Surgery Additional Past Surgical History / Comment(s): eye, wrist Past Psychological History: No Psychological Hx Reported Smoking Status: Former smoker Past Alcohol Use History: Occasional Past Drug Use History: Marijuana General Exam Limitations: no limitations General appearance: alert, in no apparent distress Head exam: Present: atraumatic, normocephalic Eye exam: Present: other (Right eye anucleation) Neck exam: Present: normal inspection, full ROM. Absent: tenderness Respiratory exam: Present: normal lung sounds bilaterally. Absent: respiratory distress, wheezes Cardiovascular Exam: Present: normal rhythm, bradycardia GI/Abdominal exam: Present: soft. Absent: distended, tenderness, guarding Extremities exam: Present: normal inspection, normal capillary refill. Absent: pedal edema, calf tenderness Neurological exam: Present: alert, oriented X3, CN II-XII intact. Absent: motor sensory deficit Course Vital Signs 10/23/20 20:37 Temperature 97.8 F Pulse Rate 53 L Respiratory 16 Rate Blood Pressure 109/77 O2 Sat by Pulse 99 Oximetry - Reevaluation(s) Reevaluation #1: 10/23/20 20:51 Case discussed with Lissa mancini for [facility]. EKG Findings - EKG Comments: EKG Findings:: EKG: Marked bradycardia, rate of 45, [place] interval 154, QRS duration 96, QTC 437, no ST segment elevation. Medical Decision Making - Medical Decision Making 64-year-old male transferred from outside hospital for non-ST segment elevated IA, elevated troponin 0.18. This level as well as all of his laboratory testing will be repeated, currently pending. Troponin level will be trended. Echo has been ordered. He will be continued on heparin. He is chest pain-free while the emergency department. I discussed case with Lissa mancini for [facility]. Patient will be kept in a monitored bed. Cardiology has been notified, Dr. Medrano. Disposition Clinical Impression: Acute non-ST elevation myocardial infarction (NSTEMI), NSTEMI (non-ST elevated myocardial infarction) Disposition: ADMITTED IP TO THIS HOSP Condition: Stable Is patient prescribed a controlled substance at d/c from ED?: No Referrals: None,Stated [Primary Care Provider] - 1-2 days Decision to Admit Reason: Admit from EC Decision Date: 10/23/20 Decision Time: 20:51
[2020-10-23] MEDS ORDERED: MORPHINE SULFATE 4 MG/ML SYRINGE IV PRN (20:53)
[2020-10-23] MEDS ORDERED: NALOXONE 0.4 MG/ML 1 ML VIAL IV PRN (20:53)
[2020-10-23] MEDS ORDERED: ACETAMINOPHEN TAB 325 MG TAB PO PRN (20:53)
[2020-10-23] MEDS ORDERED: HEPARIN SOD,PORK IN 0.45% NACL 25,000 UNIT in 0.45% NACL 1 250ML.BAG IV SCH (21:00)
[2020-10-23 21:03] LABS: Basophils % (A) 1 %; Eosinophils # (A) 0.1 k/uL (0-0.7); Eosinophils % (A) 3 %; HCT 40.1 % (39.0-53.0); HGB 13.8 gm/dL (13.0-17.5); Lymphocytes # (A) 1.7 k/uL (1.0-4.8); Lymphocytes % (A) 32 %; MCH 31.4 pg (25.0-35.0); MCHC 34.3 g/dL (31.0-37.0); MCV 91.5 fL (80.0-100.0); Mean Platelet Volume 8.2; Monocytes # (A) 0.4 k/uL (0-1.0); Monocytes % (A) 7 %; Neutrophils # (A) 2.9 k/uL (1.3-7.7); Neutrophils % (A) 56 %; Platelet Count 192 k/uL (150-450); RBC 4.39 m/uL (4.30-5.90); RDW 12.6 % (11.5-15.5); WBC 5.3 k/uL (3.8-10.6)
[2020-10-23 21:11] LABS: Potassium 4.1 mmol/L (3.5-5.1)
[2020-10-23 21:12] LABS: ALT 12 U/L (4-49); AST 22 U/L (17-59); African American GFR (CKD) >90 (>60 ml/min/1.73 sqM); Albumin 4.3 g/dL (3.5-5.0); Alkaline Phosphatase 88 U/L (38-126); Anion Gap 8 mmol/L; Blood Urea Nitrogen 17 mg/dL (9-20); Calcium 9.3 mg/dL (8.4-10.2); Carbon Dioxide 24 mmol/L (22-30); Chloride 106 mmol/L (98-107); Glucose 88 mg/dL (74-99); Magnesium 2.1 mg/dL (1.6-2.3); Non-African American GFR(CKD) >90 (>60 ml/min/1.73 sqM); Sodium 138 mmol/L (137-145); Total Bilirubin 0.7 mg/dL (0.2-1.3); Total Protein 7.1 g/dL (6.3-8.2)
[2020-10-23 21:30] LABS: Prothrombin Time 10.9 sec (9.0-12.0)
[2020-10-23 21:47] LABS: Partial Thromboplastin Time 186.5 sec (22.0-30.0)
[2020-10-24 03:40] LABS: Basophils % (A) 1 %; Eosinophils # (A) 0.1 k/uL (0-0.7); Eosinophils % (A) 2 %; HCT 40.9 % (39.0-53.0); Lymphocytes # (A) 1.6 k/uL (1.0-4.8); Lymphocytes % (A) 36 %; MCH 31.5 pg (25.0-35.0); MCHC 34.1 g/dL (31.0-37.0); MCV 92.3 fL (80.0-100.0); Mean Platelet Volume 8.1; Monocytes # (A) 0.4 k/uL (0-1.0); Monocytes % (A) 9 %; Neutrophils # (A) 2.2 k/uL (1.3-7.7); Neutrophils % (A) 50 %; Platelet Count 185 k/uL (150-450); RBC 4.44 m/uL (4.30-5.90); RDW 12.6 % (11.5-15.5); WBC 4.4 k/uL (3.8-10.6)
[2020-10-24 03:45] LABS: INR 0.9 (<1.2); Prothrombin Time 10.2 sec (9.0-12.0)
[2020-10-24] MEDS: SYMBICORT 80-4.5 MCG INHALER INHALATION PRN ×2 (04:05→19:52)
[2020-10-24] MEDS ORDERED: ATORVASTATIN 80 MG TAB PO STA (08:34)
[2020-10-24] MEDS ORDERED: ALPRAZolam 0.25 MG TAB PO PRN (08:34)
[2020-10-24] MEDS ORDERED: ALPRAZolam 0.5 MG TAB PO PRN (08:34)
[2020-10-24] MEDS ORDERED: SODIUM CHLORIDE 0.9% 1,000 ML in EMPTY BAG 1 BAG IV ONE (08:34)
[2020-10-24] MEDS ORDERED: NITROGLYCERIN SL TABS 0.4 MG TAB SUBLINGUAL PRN (08:34)
[2020-10-24] MEDS ORDERED: LIDOCAINE 1% INJ 10MG/ML (20 ML MDV) ONE (08:52)
[2020-10-24] MEDS ORDERED: fentaNYL (PF) 50 MCG/ML 2 ML AMP ONE (08:53)
[2020-10-24] MEDS ORDERED: ASPIRIN 325 MG TAB PO SCH (09:00)
[2020-10-24] MEDS ORDERED: IV FLUID CONTINUATION 1,000 ML IV ONE (09:04)
[2020-10-24] MEDS ORDERED: MIDAZOLAM 2 MG/2 ML VIAL IV ONE (09:35)
[2020-10-24] MEDS ORDERED: fentaNYL (PF) 50 MCG/ML 2 ML AMP IV ONE (09:35)
[2020-10-24] MEDS ORDERED: LIDOCAINE 1% INJ 10MG/ML (20 ML MDV) SQ ONE (09:39)
[2020-10-24] MEDS ORDERED: IOPAMIDOL-370 125ML BTL INJ ONE (09:48)
--- NOTE | 2020-10-24 10:11 | ECHOF ---
Referral Reason:NSTEMI MEASUREMENTS -------- HEIGHT: 188.0 cm WEIGHT: 88.5 kg BP: 138/70 RVIDd: 2.7 cm (< 3.3) IVSd: 1.3 cm (0.6 - 1.1) LVIDd: 4.2 cm (3.9 - 5.3) LVPWd: 1.3 cm (0.6 - 1.1) IVSs: 1.7 cm LVIDs: 2.7 cm LVPWs: 1.6 cm LA Diam: 3.2 cm (2.7 - 3.8) Ao Diam: 3.3 cm (2.0 - 3.7) AV Cusp: 1.6 cm (1.5 - 2.6) MV EXCURSION: 22.126 mm (> 18.000) MV EF SLOPE: 126 mm/s (70 - 150) EPSS: 0.3 cm MV E Dipesh: 0.87 m/s MV DecT: 288 ms MV A Dipesh: 0.80 m/s MV E/A Ratio: 1.09 AV maxP.81 mmHg AV meanP.57 mmHg FINDINGS -------- Resting bradycardia (HR<60bpm). This was a technically adequate study. The left ventricular size is normal. There is mild concentric left ventricular hypertrophy. Overa ll left ventricular systolic function is normal with, an EF between 60 - 65 %. The right ventricle is normal in size. The left atrium is normal in size. The right atrium is normal in size. Interatrial and interventricular septum intact. There is mild aortic valve sclerosis. There is mild aortic stenosis present. Peak/mean gradient a cross the Aortic Valve is 15.81mmHg / 8.57mmHg. The mitral valve is normal. The tricuspid valve appears structurally normal. The pulmonic valve was not well visualized. The aortic root size is normal. Normal inferior vena cava with normal inspiratory collapse consistent with estimated right atrial pre ssure of 5 mmHg. There is no pericardial effusion. CONCLUSIONS -------- 1. The left ventricular size is normal. 2. There is mild concentric left ventricular hypertrophy. 3. Overall left ventricular systolic function is normal with, an EF between 60 - 65 %. 4. There is mild aortic valve sclerosis. 5. There is mild aortic stenosis present. 6. Peak/mean gradient across the Aortic Valve is 15.81mmHg / 8.57mmHg. 7. There is no pericardial effusion. [employer] TESTER: Josefina Hurd RDCS
--- NOTE | 2020-10-24 10:12 | CC ---
CARDIAC CATHETERIZATION REPORT INDICATION: Unstable angina. PROCEDURE NOTE: After obtaining informed consent, left heart catheterization and coronary angiogram were performed via the right femoral artery using standard Vic catheters. Patient tolerated the procedure well without any obvious immediate complications. A femoral angiogram was performed and decision was made for manual hemostasis. Patient received moderate conscious sedation. Total sedation time was 15 minutes. FINDINGS: 1. HEMODYNAMICS: Left ventricular end-diastolic pressure is 9 mm. There is no significant gradient across the aortic valve. 2. LEFT VENTRICULOGRAM: The left ventriculogram is not performed. 3. ANGIOGRAPHIC DATA: Left Main Coronary Artery: Left main coronary artery is a normal-sized vessel and is free of stenosis. Divides into left anterior descending coronary artery and circumflex coronary artery. LAD and its branches, circumflex coronary artery and its branches are free of significant stenosis. Right coronary artery shows catheter-induced spasm of the proximal right coronary artery, but is free of significant stenosis. CONCLUSIONS: 1. Normal coronary arteries. 2. Normal left ventricular end-diastolic pressure. PLAN: I reviewed angiographic data with the patient and told him that his chest discomfort is probably noncardiac in origin and his management is going to be in the form of aggressive risk factor modification. MMODL / IJN: [id number] /
--- NOTE | 2020-10-24 10:35 | P.CRDCN ---
History of Present Illness History of present illness: HISTORY OF PRESENTING ILLNESS This is a pleasant 64-year-old male past medical history significant for former nicotine dependence and COPD. He denies prior history of coronary artery disease and does not follow in the office with a quarter lining smoother. We have been asked to see in consultation for chest pain and elevated troponin. He states he woke up on Wednesday night to use the restroom. He noticed his left arm was heavy and he was having a heavy sensation in the midsternal region associated with nausea and diaphoresis. He sat down drinking glass of water used his inhalers and went back to bed. He woke up at 8:00 in the morning feeling somewhat normal. He watched his granddaughter for a couple of hours and as the day went on he noticed ongoing nausea. He had another episode of chest discomfort associated with shortness of breath and dizziness prompting him to go to [facility]. Initial troponin obtained and there was 0.18. He was heparinized and transferred here for further cardiac evaluation. He has had no further symptoms of chest discomfort. He states he underwent cardiac catheterization approximately 5 years ago in [place] that he recalls as being normal. He states his mother has a history of coronary artery disease and atrial fibrillation. DIAGNOSTICS EKG reveals sinus bradycardia both at [facility] and here with no ST or T wave abnormalities noted. Telemetry tracings indicate sinus mechanism. Chest xray negative for an acute cardiopulmonary process. Laboratory reviewed, cardiac enzymes obtained here are negative 3, CBC unremarkable, sodium 138, potassium 4.1, creatinine 0.81. He takes no daily cardiac medications. REVIEW OF SYSTEMS At the time of my exam: CONSTITUTIONAL: Denies fever or chills. CARDIOVASCULAR: Denies chest pain, shortness of breath, orthopnea, PND or palpitations. RESPIRATORY: Denies cough. GASTROINTESTINAL: Denies abdominal pain, diarrhea, constipation, nausea or vomiting. MUSCULOSKELETAL: Denies myalgias. NEUROLOGIC: Denies numbness, tingling, headacbe or weakness. ENDOCRINE: Denies fatigue, weight change, polydipsia or polyurina. GENITOURINARY: Denies burning, hematuria or urgency with micturation. HEMATOLOGIC: Denies history of anemia or bleeding. PHYSICAL EXAMINATION Blood pressure 114/65 heart rate 49 afebrile and maintaining oxygen saturation on room air. CONSTITUTIONAL: No apparent distress. HEENT: Head is normocephalic. Pupils are equal, round. Sclerae anicteric. Mucous membranes of the mouth are moist. No JVD. No carotid bruit. CHEST EXAMINATION: Lungs are clear to auscultation. No chest wall tenderness is noted on palpation or with deep breathing. HEART EXAMINATION: Regular rate and rhythm. S1, S2 heard. No murmurs, gallops or rub. ABDOMEN: Soft, nontender. Positive bowel sounds. EXTREMITIES: 2+ peripheral pulses, no lower extremity edema and no calf tenderness. NEUROLOGIC EXAMINATION: Patient is awake, alert and oriented x3. ASSESSMENT Unstable angina Former nicotine dependence COPD PLAN Elevated troponin at [facility] of unclear clinical significance given 3 normal values obtained here. Clinically symptoms are suggestive of unstable angina. Recommend proceeding with cardiac catheterization to assess for underlying coronary artery disease. I have discussed the risks, benefits and alternative therapies for the above-mentioned procedure and for both sedation/analgesia as well as necessary blood product administration, if indicated, as they pertain to this patient. The patient has indicated understanding and acceptance of the risks and procedures discussed. Questions have been answered appropriately and he is agreeable to move forward with the above stated procedure. Echocardiogram has been obtained and will be reviewed. Thank you kindly for this consultation. Nurse Practitioner note has been reviewed, I agree with a documented findings and plan of care. Patient was seen and examined. Past Medical History Past Medical History: COPD Additional Past Medical History / Comment(s): bradycardia History of Any Multi-Drug Resistant Organisms: None Reported Past Surgical History: Orthopedic Surgery Additional Past Surgical History / Comment(s): eye, wrist Past Anesthesia/Blood Transfusion Reactions: No Reported Reaction Past Psychological History: No Psychological Hx Reported Smoking Status: Former smoker Past Alcohol Use History: Occasional Past Drug Use History: Marijuana Medications and Allergies Home Medications Medication Instructions Recorded Confirmed Type Fluticasone/Salmeterol [Advair 1 puff INHALATION RT-DAILY PRN 10/23/20 10/23/20 History 250-50 Diskus] Allergies Allergy/AdvReac Type Severity Reaction Status Date / Time No Known Allergies Allergy Verified 10/23/20 21:17 Physical Exam Vitals: Vital Signs Temp Pulse Pulse Resp BP BP Pulse Ox 10/24/20 04:00 97.9 F 60 17 138/70 99 10/24/20 02:00 54 L 17 10/23/20 23:55 97.7 F 54 L 17 122/55 96 10/23/20 21:24 97.7 F 54 L 17 122/55 10/23/20 20:37 97.8 F 53 L 16 109/77 99 Intake and Output 10/23/20 10/24/20 10/24/20 22:59 06:59 14:59 Intake Total 55.246 Output Total 200 Balance -144.754 Intake: Intake, IV Titration 55.246 Amount Heparin Sod,Pork in 0.45% 55.246 NaCl 25,000 unit In 0.45 % NaCl 1 250ml.bag @ 11 UNITS/KG/HR 9.979 mls/hr IV .Q24H [facility] Rx#: [id number] Output: Urine 200 Other: # Voids 2 Weight 90.718 kg 88.5 kg Results 10/24/20 03:04 10/23/20 20:56 Cardiac Enzymes 10/23/20 10/23/20 10/23/20 Range/Units 20:56 20:56 21:05 AST 22 (17-59) U/L Troponin I <0.012 <0.012 (0.000-0.034) ng/mL 10/24/20 Range/Units 00:54 AST (17-59) U/L Troponin I <0.012 (0.000-0.034) ng/mL Coagulation 10/23/20 10/24/20 Range/Units 20:56 03:04 PT 10.9 10.2 (9.0-12.0) sec APTT 186.5 H* 30.0 (22.0-30.0) sec CBC 10/23/20 10/24/20 Range/Units 20:56 03:04 WBC 5.3 4.4 (3.8-10.6) k/uL RBC 4.39 4.44 (4.30-5.90) m/uL Hgb 13.8 14.0 (13.0-17.5) gm/dL Hct 40.1 40.9 (39.0-53.0) % Plt Count 192 185 (150-450) k/uL Comprehensive Metabolic Panel 10/23/20 Range/Units 20:56 Sodium 138 (137-145) mmol/L Potassium 4.1 (3.5-5.1) mmol/L Chloride 106 (98-107) mmol/L Carbon Dioxide 24 (22-30) mmol/L BUN 17 (9-20) mg/dL Creatinine 0.81 (0.66-1.25) mg/dL Glucose 88 (74-99) mg/dL Calcium 9.3 (8.4-10.2) mg/dL AST 22 (17-59) U/L ALT 12 (4-49) U/L Alkaline Phosphatase 88 (38-126) U/L Total Protein 7.1 (6.3-8.2) g/dL Albumin 4.3 (3.5-5.0) g/dL Current Medications Generic Name Dose Route Start Last Admin Trade Name Freq PRN Reason Stop Dose Admin Acetaminophen 650 mg 10/23/20 20:53 Acetaminophen Tab 325 Mg Tab PO Q6HR PRN Mild Pain or Fever > 100.5 Aspirin 325 mg 10/24/20 09:00 Aspirin 325 Mg Tab PO DAILY [facility] Budesonide/Formoterol Fumarate 1 puff 10/23/20 23:15 10/24/20 04:05 Symbicort 80-4.5 Mcg Inhaler INHALATION 1 puff RT-BID PRN Administration Shortness Of Breath Heparin Sodium (Porcine) 0 unit 10/23/20 20:51 Heparin Sodium 1,000 Un/Ml (10ml Vl) IV PER PROTOCOL PRN Low PTT Protocol Heparin Sodium/Sodium Chloride 250 mls @ 9.979 mls/hr 10/23/20 21:00 10/24/20 04:01 25,000 unit/ Sodium Chloride IV 11 units/kg/hr .Q24H [facility] 9.979 mls/hr Titration Protocol 11 UNITS/KG/HR Morphine Sulfate 4 mg 10/23/20 20:53 Morphine Sulfate 4 Mg/Ml Syringe IV Q4HR PRN Severe Pain Naloxone HCl 0.2 mg 10/23/20 20:53 Naloxone 0.4 Mg/Ml 1 Ml Vial IV Q2M PRN Opioid Reversal Intake and Output 10/23/20 10/24/20 10/24/20 22:59 06:59 14:59 Intake Total 55.246 Output Total 200 Balance -144.754 Intake: Intake, IV Titration 55.246 Amount Heparin Sod,Pork in 0.45% 55.246 NaCl 25,000 unit In 0.45 % NaCl 1 250ml.bag @ 11 UNITS/KG/HR 9.979 mls/hr IV .Q24H [facility] Rx#: [id number] Output: Urine 200 Other: # Voids 2 Weight 90.718 kg 88.5 kg 10/24/20 03:04 10/23/20 20:56
--- NOTE | 2020-10-24 10:44 | P.HPIM ---
History of Present Illness This is a pleasant 64 years old female with past medical history of COPD. History of bradycardia. Patient does not follow up with primary care doctor for shortness problems. Presents of 1 hour history of chest pain radiating to the left arm, patient in the lower chest anteriorly radiating to the left shoulder and left arm consult to the left neck area. Patient rated at 7/10, he described Nonspecific associated with little dyspnea but he states he has history of COPD, not on home oxygen and does not follow up with piercing mill operator. Denies coughing. No abdominal pain or nausea vomiting. No urinary symptoms. He denies smoking, alcohol. He smokes little marijuana every morning Vital signs stable except for mild bradycardia Labs are unremarkable including CBC, INR, liver enzymes, pacing metabolic panel. Troponins are negative less than 0.012. Coronavirus not detected EKG showing marked sinus bradycardia at [address]-T changes In the emergency room patient was just continued on her home medication with aspirin 325 mg and cartilage team were consulted Note: Could not locate the paper from [facility], discussed with staff Review of Systems CONSTITUTIONAL: No fever, no malaise, no fatigue. HEENT: No recent visual problems or hearing problems. Denied any sore throat. CARDIOVASCULAR: No orthopnea, PND, no palpitations, no syncope. PULMONARY: No shortness of breath, no cough, no hemoptysis. GASTROINTESTINAL: No diarrhea, no nausea, no vomiting, no abdominal pain. Normoactive bowel sounds. NEUROLOGICAL: No headaches, no weakness, no numbness. HEMATOLOGICAL: Denies any bleeding or petechiae. GENITOURINARY: Denies any burning micturition, frequency, or urgency. MUSCULOSKELETAL/RHEUMATOLOGICAL: Denies any joint pain, swelling, or any muscle pain. ENDOCRINE: Denies any polyuria or polydipsia. Past Medical History Past Medical History: COPD Additional Past Medical History / Comment(s): bradycardia History of Any Multi-Drug Resistant Organisms: None Reported Past Surgical History: Orthopedic Surgery Additional Past Surgical History / Comment(s): eye, wrist Past Anesthesia/Blood Transfusion Reactions: No Reported Reaction Past Psychological History: No Psychological Hx Reported Smoking Status: Former smoker Past Alcohol Use History: Occasional Past Drug Use History: Marijuana Medications and Allergies Home Medications Medication Instructions Recorded Confirmed Type Fluticasone/Salmeterol [Advair 1 puff INHALATION RT-DAILY PRN 10/23/20 10/23/20 History 250-50 Diskus] Allergies Allergy/AdvReac Type Severity Reaction Status Date / Time No Known Allergies Allergy Verified 10/23/20 21:17 Physical Exam Vitals: Vital Signs Temp Pulse Pulse Resp BP BP Pulse Ox 10/24/20 04:00 97.9 F 60 17 138/70 99 10/24/20 02:00 54 L 17 10/23/20 23:55 97.7 F 54 L 17 122/55 96 10/23/20 21:24 97.7 F 54 L 17 122/55 10/23/20 20:37 97.8 F 53 L 16 109/77 99 Intake and Output 10/23/20 10/23/20 10/24/20 14:59 22:59 06:59 Intake Total 55.246 Balance 55.246 Intake: Intake, IV Titration 55.246 Amount Heparin Sod,Pork in 0.45% 55.246 NaCl 25,000 unit In 0.45 % NaCl 1 250ml.bag @ 11 UNITS/KG/HR 9.979 mls/hr IV .Q24H [facility] Rx#: [id number] Other: Weight 90.718 kg 88.5 kg GENERAL: The patient is alert and oriented x3, not in any acute distress. Well developed, well nourished. HEENT: Pupils are round and equally reacting to light. EOMI. No scleral icterus. No conjunctival pallor. Normocephalic, atraumatic. No pharyngeal erythema. No thyromegaly. CARDIOVASCULAR: S1 and S2 present. No murmurs, rubs, or gallops. PULMONARY: Chest is clear to auscultation, no wheezing or crackles. ABDOMEN: Soft, nontender, nondistended, normoactive bowel sounds. No palpable organomegaly. MUSCULOSKELETAL: No joint swelling or deformity. EXTREMITIES: No cyanosis, clubbing, or pedal edema. NEUROLOGICAL: Gross neurological examination did not reveal any focal deficits. SKIN: No rashes. No petechiae Results CBC & Chem 7: 10/24/20 03:04 10/23/20 20:56 Labs: Abnormal Lab Results - Last 24 Hours (Table) 10/23/20 Range/Units 20:56 APTT 186.5 H* (22.0-30.0) sec Thrombosis Risk Factor Assmnt - Choose All That Apply Any of the Below Risk Factors Present?: Yes Each Factor Represents 1 point: Abnormal pulmonary function (COPD) Other Risk Factors: No Other congenital or acquired thrombophilia - If yes, enter type in comment: No Thrombosis Risk Factor Assessment Total Risk Factor Score: 1 Thrombosis Risk Factor Assessment Level: Low Risk Assessment and Plan Assessment: Acute chest pain suspicious for non-ST elevation myocardial infarction and coronary artery disease COPD, no acute exacerbation Chronic asymptomatic bradycardia Plan: This is a pleasant 64 years old male who presents with UA, cardiology team on the case and the plan is for cardiac cath. Labs and medication were reviewed.. Continue same treatment. Continue with symptomatic treatment. Resume home medication. Monitor lytes and vitals. DVT and GI prophylaxis. Further recommendations depends on the clinical course of the patient DVT prophylaxis: Subcutaneous heparin GI Prophylaxis: Pepcid PT/OT: Pending Prognosis is guarded
[2020-10-24] MEDS: SODIUM CHLORIDE 0.9% 1,000 ML IV SCH ×2 (10:45→19:56)
[2020-10-24] MEDS ORDERED: RX INFO: IV CONTRAST WAS GIVEN 1 EACH MISC MISCELLANE PRN (11:50)
--- NOTE | 2020-10-24 14:42 | US ---
EXAMINATION TYPE: US lower ext pseudo artery RT DATE OF EXAM: 10/24/2020 COMPARISON: NONE CLINICAL HISTORY: pain after femoral approach heart cath. Right groin heart cath today EXAM PERFORMED: Grayscale and color Doppler duplex imaging performed of the groin, post cardiac bianca ter to assess for pseudoaneurysm. SIDE PERFORMED: Right Color and Waveform Doppler performed to assess for the presence of pseudoaneurysm; Is there ultrasound evidence of a pseudoaneurysm: no Is there evidence of AV shunting: no Is there a fluid collection present: no Limited scanning performed in the right groin. IMPRESSION: No evident pseudoaneurysm or arteriovenous fistula
--- NOTE | 2020-10-24 14:57 | US ---
EXAMINATION TYPE: US abdomen limited DATE OF EXAM: 10/24/2020 COMPARISON: NONE CLINICAL HISTORY: abd fluid. Abd pain No fluid seen within all 4 quadrants Limited scanning performed in the abdomen to include the right upper quadrant, right lower quadrant, left upper quadrant and left lower quadrant IMPRESSION: No evident ascites on these limited views
[2020-10-24 16:33] LABS: Chol/HDL Ratio 4.92; LDL Cholesterol,Calculated 135.6 mg/dL (0.0-131.0); VLDL Calculation 17.4 mg/dL (5.00-40.00)
[2020-10-25] MEDS ORDERED: HEPARIN SODIUM,PORCINE 2,500 UNIT in SODIUM CHLORIDE 0.9% 250 ML IRRIGATION PRN (07:00)
[2020-10-25] MEDS ORDERED: HEPARIN SODIUM,PORCINE 10,000 UNIT in SODIUM CHLORIDE 0.9% 1,000 ML IRRIGATION PRN (07:00)
[2020-10-25] MEDS: SODIUM CHLORIDE 0.9% 1,000 ML IV SCH (08:06)
[2020-10-25 08:09] VITALS: RESP 16; TEMP 98.1
[2020-10-25] MEDS: SYMBICORT 80-4.5 MCG INHALER INHALATION PRN (08:20)
[2020-10-25 08:36] LABS: African American GFR (CKD) >90 (>60 ml/min/1.73 sqM); Anion Gap 4 mmol/L; Blood Urea Nitrogen 15 mg/dL (9-20); Calcium 8.7 mg/dL (8.4-10.2); Carbon Dioxide 24 mmol/L (22-30); Chloride 110 mmol/L (98-107); Glucose 90 mg/dL (74-99); Non-African American GFR(CKD) >90 (>60 ml/min/1.73 sqM); Potassium 4.3 mmol/L (3.5-5.1); Sodium 138 mmol/L (137-145)
[2020-10-25] MEDS ORDERED: ATORVASTATIN 40 MG TAB PO SCH (10:45)
--- NOTE | 2020-10-25 11:56 | P.PN ---
Subjective HISTORY OF PRESENTING ILLNESS This is a pleasant 64-year-old male past medical history significant for former nicotine dependence and COPD. He denies prior history of coronary artery disease and does not follow in the office with a audio visual secretary. We have been asked to see in consultation for chest pain and elevated troponin. He states he woke up on Wednesday night to use the restroom. He noticed his left arm was heavy and he was having a heavy sensation in the midsternal region associated with nausea and diaphoresis. He sat down drinking glass of water used his inhalers and went back to bed. He woke up at 8:00 in the morning fee ling somewhat normal. He watched his granddaughter for a couple of hours and as the day went on he noticed ongoing nausea. He had another episode of chest discomfort associated with shortness of breath and dizziness prompting him to go to [facility]. Initial troponin obtained and there was 0.18. He was heparinized and transferred here for further cardiac evaluation. He has had no further symptoms of chest discomfort. He states he underwent cardiac catheterization approximately 5 years ago in [place] that he recalls as being normal. He states his mother has a history of coronary artery disease and atrial fibrillation. 10/24/2020 Pt seen and examined sitting up in bed eating breakfast. He denies chest pain, shortness of breath, dizziness or palpitations. Yesterday he underwent LHC revealing normal coronary arteries. After the procedure he was complaining of significant discomfort of the right groin radiating to his back. Ultrasound imaging was unremarkable for aneurysm or retroperitoneal bleeding. Pain has resolved. Blood pressure 121/73 heart rate 52 afebrile maintaining oxygen saturation on room air. Laboratory data reviewed, CBC unremarkable, sodium 138, potassium 4.3, creatinine 0.77, LDL 135 and HDL 39. PHYSICAL EXAMINATION CONSTITUTIONAL: No apparent distress. HEENT: Head is normocephalic. Pupils are equal, round. Sclerae anicteric. Mucous membranes of the mouth are moist. No JVD. No carotid bruit. CHEST EXAMINATION: Lungs are clear to auscultation. No chest wall tenderness is noted on palpation or with deep breathing. HEART EXAMINATION: Regular rate and rhythm. S1, S2 heard. No murmurs, gallops or rub. EXTREMITIES: 2+ peripheral pulses, no lower extremity edema and no calf tenderness. Right femoral access site soft, nontender with no ecchymosis or hematoma. ASSESSMENT Unstable angina Former nicotine dependence COPD PLAN ASCVD 10-yr risk is 11.3%, recommend moderate intensity statin. Stable for discharge from a cardiac perspective. Follow up with Dr. Medrano in [place] office November 11. Nurse Practitioner note has been reviewed, I agree with a documented findings and plan of care. Patient was seen and examined. Objective - Vital Signs Vital signs: Vital Signs Temp 98.1 F 10/25/20 08:00 Pulse 52 L 10/25/20 08:00 Resp 16 10/25/20 08:00 BP 121/73 10/25/20 08:00 Pulse Ox 96 10/25/20 08:00 Intake & Output 10/24/20 10/25/20 10/25/20 18:59 06:59 18:59 Intake Total 1040 960 118 Output Total 475 350 Balance 565 610 118 Weight 66.5 kg Intake: IV 100 Intake, IV Titration 600 Amount Sodium Chloride 0.9% 1, 600 000 ml @ 75 mls/hr IV . [id number] [facility] Rx#:[id number] Oral 340 960 118 Output: Urine 475 350 Other: Voiding Method Toilet - Labs CBC & Chem 7: 10/24/20 03:04 10/25/20 07:38 Labs: Abnormal Lab Results - Last 24 Hours (Table) 10/24/20 10/25/20 Range/Units 03:04 07:38 Chloride 110 H (98-107) mmol/L LDL Cholesterol, Calc 135.6 H (0.0-131.0) mg/dL HDL Cholesterol 39.0 L (40.0-60.0) mg/dL
[2020-10-25 12:18] VITALS: BP 127/72; PULSE 61
--- NOTE | 2020-10-26 00:22 | P.DS ---
Providers Date of admission: 10/23/20 20:53 Attending physician: Laquita Jaramillo Consults: 10/23/20 20:54 Consult Physician Routine Consulting Provider: Alexander House Consult Reason/Comments: NSTEMI Do you want consulting provider notified?: Yes Primary care physician: Stated None Hospital Course: Diagnoses: Acute chest pain with negative cardiac cath for coronary artery disease. COPD, no acute exacerbation Chronic asymptomatic bradycaria Hospital course: This is a pleasant 64 years old female with past medical history of COPD. History of bradycardia. Patient does not follow up with primary care doctor for shortness problems. Presents of 1 hour history of chest pain radiating to the left arm, patient has been evaluated by braiding operator, he has negative cardiac cath. This morning patient chest pain completely resolved, history of tinnitus 0/10, no dyspnea, no other complaint. I was very happy and excited with his improvement. Patient agrees that he can go home today. Patient was cleared for discharge by braiding operator. Problems and management plan were discussed with the patient and he verbalized understanding and acceptance Patient was found stable and can be discharged home however he needs follow-up as an outpatient. Patient was instructed to follow up with PCP within one week and patient agrees Patient was instructed to follow up with braiding operator Dr. Medrano in 1-2 weeks and he agrees with staff make an appointment for him which is on . Patient status has no PCP, he was instructed to call his medical insurance provider to find PCP. Physical exam Gen: patient is a AAOx3, no distress CVS: S1-S2, RRR, no murmur Lungs: B/L CTA, no wheezing Abdomen: soft, no distention, no tenderness, positive bowel sounds Extremity: no leg edema or induration Time spent more than 35 minutes Patient Condition at Discharge: Stable Plan - Discharge Summary Discharge Rx Participant: No New Discharge Prescriptions: New Nitroglycerin Sl Tabs [Nitrostat] 0.4 mg SUBLINGUAL Q5M PRN #10 tab PRN Reason: Chest Pain Acetaminophen Tab [Tylenol] 650 mg PO Q6HR PRN tab PRN Reason: Mild Pain Or Fever > 100.5 Atorvastatin [Lipitor] 40 mg PO DAILY #30 tab Continue Fluticasone/Salmeterol [Advair 250-50 Diskus] 1 puff INHALATION RT-DAILY PRN PRN Reason: Shortness Of Breath Discharge Medication List Fluticasone/Salmeterol [Advair 250-50 Diskus] 1 puff INHALATION RT-DAILY PRN 10/23/20 [History] Acetaminophen Tab [Tylenol] 650 mg PO Q6HR PRN tab 10/25/20 [Rx] Atorvastatin [Lipitor] 40 mg PO DAILY #30 tab 10/25/20 [Rx] Nitroglycerin Sl Tabs [Nitrostat] 0.4 mg SUBLINGUAL Q5M PRN #10 tab 10/25/20 [Rx] Follow up Appointment(s)/Referral(s): None,Stated [Primary Care Provider] - 1-2 days Dakota Medrano MD [STAFF PHYSICIAN] - 11/11/20 3:30 pm (3:30 pm. Office is located in [facility] at [address] [place] [address] in [place], [place]. ) Patient Instructions/Handouts: *Surgery [facility] - After Heart Catheterization - Marine Meteorologist Instructions Activity/Diet/Wound Care/Special Instructions: Heart healthy diet Activity is restricted until you see your doctor We recommend he follow-up with her family doctor in 1 week, please call to make your appointment. You have the contact information of your primary care doctor as you informed the medical team Discharge Disposition: HOME SELF-CARE
== END 2020-10-25 14:28 | disposition home or self-care (01) | DRG 287 ==
LOC: EC 20:36 → 3SCARD 20:53
PROVIDERS: ADMIT Hospitalist; ATTEND Hospitalist
PROC: B2111ZZ Fluoroscopy of Multiple Coronary Arteries using Low Osmolar Contrast (ICD-10-PCS; principal; 2020-10-24 08:20)
PROC: 4A023N7 Measurement of Cardiac Sampling and Pressure, Left Heart, Percutaneous Approach (ICD-10-PCS; principal; 2020-10-24 08:20)
DX: R07.9 Chest pain, unspecified (principal); J44.9 Chronic obstructive pulmonary disease, unspecified; Z20.822 Contact with and (suspected) exposure to COVID-19; R00.1 Bradycardia, unspecified; Z79.82 Long term (current) use of aspirin; Z82.49 Family history of ischemic heart disease and other diseases of the circulatory system; Z87.891 Personal history of nicotine dependence; Z79.51 Long term (current) use of inhaled steroids; Z79.899 Other long term (current) drug therapy
CPT/HCPCS: 36415; 76705; 80048; 80053; 80061; 83735; 84484; 85025; 85610; 85730; 87635; 93005; 93306; 93458; 93975; 94640; 99285